=== PATIENT | male | born 1970 | race Caucasian/White ===

== ENCOUNTER 2020-07-02 09:06 | Emergency (ER) | payer OTHER ==
[~2020-07-02] VITALS: Ht 185.4 cm; Wt 117.9 kg
== END 2020-07-02 11:50 | disposition home or self-care (01) ==
LOC: ED 09:06
DX: S39.012A Strain of muscle, fascia and tendon of lower back, initial encounter (principal); S46.911A Strain of unspecified muscle, fascia and tendon at shoulder and upper arm level, right arm, initial encounter; V49.9XXA Car occupant (driver) (passenger) injured in unspecified traffic accident, initial encounter; Y93.89 Activity, other specified; Y92.89 Other specified places as the place of occurrence of the external cause; Y99.8 Other external cause status